=== PATIENT | male | born 1955 | race Caucasian/White ===

== ENCOUNTER 2020-07-22 14:21 | Inpatient (IN) | payer OTHER ==
[~2020-07-22] VITALS: Ht 165.1 cm; Wt 89.8 kg
[2020-07-22] MEDS ORDERED: GLIPIZIDE XL10 MG PO (15:11)
[2020-07-22] MEDS ORDERED: FORTAMET500 MG PO (15:11)
[2020-07-22] MEDS ORDERED: PROSCAR5 MG PO (15:12)
[2020-07-22] MEDS ORDERED: ZESTRIL10 M1 PO (15:12)
[2020-07-22] MEDS ORDERED: ATORVASTATIN CA10 MG PO (15:12)
[2020-07-22] MEDS ORDERED: AMLODIPINE-OLM1 EACH PO (15:12)
--- NOTE | 2020-07-22 15:13 | NUR ---
SE RECIBE PACIENTE ALERTA, ORIENTADO X 3 ESFERAS REFIERE TENER DOLOR EN AREA PELVICO HACE 3 MEDINA. EVALUADO POR . SE UBICA EN AREA DE OBSERVACION.
--- NOTE | 2020-07-22 17:35 | NUR ---
PACIENTE ALERTA Y ORIENTADO EN TIEMPO LUGAR Y PERSONA. RN VANG ORIENTA SOBRE TRATAMIENTO ORDENADO, EL MISMO VERBALIZA ENTENDER. RN COLECTA MUESTRAS ORDENADAS, ADMINISTRA MEDICAMENTOS Y CONECTA TERAPIA DE IVF'S 0.9 NSS 1000ML A 125ML/HR, HACIENDO USO DE MEDIDAS ASEPTICAS CORRESPONDIENTES. PTE EN ESPERA DE RESULTADOS PARA RE-EVALUACION MEDICA. SE MANTIENE PTE EN OBSERVACION POR CAMBIOS SIGNIFICATIVOS.
--- NOTE | 2020-07-23 07:13 | NUR ---
PACIENTE ALERTA Y ORIENTADO EN HOLLY SHAYY ESFERAS, PRESENTA BUEN PATRON RESPIRATORIO Y BALTAZAR DE DOLOR. RECIBIENDO 0.9% NSS A 120 ML/HR, CANALIZACION PATENTE Y BALTAZAR DE S/S DE FLEBITIS E INFILTRACION, PENDIENTE RESULTADOS DE CBC, BMP Y ACIDO LACTICO, PENDIENTE EVALUACION DE MEDICINA INTERNA DR GORDON Y CIRUJANO DR Familia GUTIERREZ POR RT INGUINAL HERNIA.
--- NOTE | 2020-07-23 08:26 | NUR ---
SE LE NOTIFICA A LA [place].RENTA VALOR PANICO DE EL PACIENTE DEL ACIDO LACTICO.S E MANTIENE BAJO OBSERVACION.
== END 2020-07-25 19:07 | disposition home or self-care (01) | DRG 690 ==
LOC: ER 14:21 → MEDI 07-23 09:34 → SURH 07-23 09:34
PROVIDERS: ADMIT Internal Medicine; ATTEND Internal Medicine
PROC: BV44ZZZ Ultrasonography of Scrotum (ICD-10-PCS; 2020-07-22)
PROC: BW21ZZZ Computerized Tomography (CT Scan) of Abdomen and Pelvis (ICD-10-PCS; principal; 2020-07-23)
DX: N39.0 Urinary tract infection, site not specified (principal); B95.1 Streptococcus, group B, as the cause of diseases classified elsewhere; N45.2 Orchitis; K40.20 Bilateral inguinal hernia, without obstruction or gangrene, not specified as recurrent; K57.30 Diverticulosis of large intestine without perforation or abscess without bleeding; N43.40 Spermatocele of epididymis, unspecified; N50.1 Vascular disorders of male genital organs; N20.0 Calculus of kidney; N28.1 Cyst of kidney, acquired; E11.65 Type 2 diabetes mellitus with hyperglycemia; I10 Essential (primary) hypertension